=== PATIENT | male | born 1970 | race Caucasian/White ===

== ENCOUNTER 2019-10-04 11:56 | Outpatient (CLI) | payer MEDICARE, SELFPAY ==
--- NOTE | ~2019-10-04 | XR_ITS ---
EXAMINATION: XR_[id number]_CR EXAM DATE: 10/04/2019 12:24 INDICATION: Fall in shower. Neck and right shoulder pain. TECHNIQUE: Cervical spine frontal, lateral, lateral swimmers, and open-mouth odontoid projections. There is no prior study for comparison. FINDINGS: There is no evidence of acute cervical fracture. The odontoid process is intact. Pre-dens space is normal. Prevertebral soft tissue is normal. There are no soft tissue abnormalities identi fied. The vertebral bodies are aligned. Vertebral body and disc heights are well-maintained. IMPRESSION: 1. Unremarkable cervical spine. Reviewed, dictated and finalized at location B.
--- NOTE | ~2019-10-04 | XR_ITS ---
EXAMINATION: XR shoulder RT min 2V EXAM DATE: 10/04/2019 12:24 INDICATION: Initial encounter following injury, with pain of the right shoulder. Fall. TECHNIQUE: The following right shoulder projections obtained: frontal projection with internal rotati on, frontal projection with external rotation, Grashey, and scapular Y view (4+ views). Comparison is made to prior examination from 08/08/2013. FINDINGS: There is large calcification along the rotator cuff consistent with calcific tendinosis. There is mild acromioclavicular joint primary osteoarthritis. There are no acute fractures or disloca tions identified. There is no subcutaneous gas. The soft tissue is unremarkable. There are no rad iopaque foreign bodies. IMPRESSION: 1. Right shoulder exam without acute osseous findings. 2. Calcific tendinosis. 3. Mild chronic clavicular osteoarthritis. Reviewed, dictated and finalized at location B.
== END 2019-10-04 11:57 | disposition home or self-care (01) ==
PROVIDERS: PCP Family Medicine; Visit Provider Physician Assistant
DX: M79.603 Pain in arm, unspecified (principal); M75.81 Other shoulder lesions, right shoulder; M19.011 Primary osteoarthritis, right shoulder
CPT/HCPCS: 72040; 73030

== ENCOUNTER 2023-04-20 09:12 | Outpatient (CLI) | payer MEDICARE, SELFPAY ==
--- NOTE | ~2023-04-20 | US_ITS ---
EXAMINATION: US abdomen complete DATE: 04/20/2023 10:35 INDICATION: Unspecified abdominal pain TECHNIQUE: Multiple grayscale and Doppler ultrasound images of the abdomen were obtained. COMPARISON: None available FINDINGS: Bowel gas obscures visualization of the pancreas. The visualized portions of the pancreas a re unremarkable. The liver is normal with normal echogenicity and echotexture. No surface nodularity. Normal hepatopetal flow in the main portal vein. There is a small amount of debris in the gallbladde r. No gallbladder wall thickening or pericholecystic fluid identified. The normal common bile duct me asures 6 mm. There was no sonographic Shea sign. The visualized portions of the aorta and inferior vena cava are normal. The spleen is normal in appearance and measures 12.3 cm. The right kidney measures 11.9 x 5.6 x 5.3 c m. The left kidney measures 12.2 x 6.2 x 5.1 cm. The kidneys demonstrate normal parenchymal echogenic ity. There is no hydronephrosis. IMPRESSION: 1. No sonographic correlate for the patient's symptoms. 2. Small amount of gallbladder debris, otherwise unremarkable gallbladder. Reviewed, dictated and finalized at location L. [employer]
== END 2023-04-20 09:13 | disposition home or self-care (01) ==
PROVIDERS: PCP Family Medicine; Visit Provider Nurse Practitioner Family
DX: R10.9 Unspecified abdominal pain (principal)
CPT/HCPCS: 76700

== ENCOUNTER 2024-04-21 14:31 | Outpatient (CLI) | payer MEDICARE, SELFPAY ==
[2024-04-21 17:58] LABS: Hemoglobin A1C 6.5 % (<5.7)
[2024-04-21 18:00] LABS: Alanine Aminotransferase 31 U/L (6-50); Albumin Level 4.8 g/dL (3.5-5.1); Alkaline Phosphatase 77 U/L (38-126); Anion Gap 12 mmol/L (4-12); Aspartate Amino Transferase 51 U/L (17-59); Bilirubin,Total 0.5 mg/dL (0.2-1.3); Blood Urea Nitrogen 18 mg/dL (9-20); Calcium 9.6 mg/dL (8.4-10.2); Carbon Dioxide 30 mmol/L (22-30); Chloride 100 mmol/L (98-107); Cholesterol 137 mg/dL (0-200); Estimated Glomerular Filt Rate > 60; Glucose 120 mg/dL (65-110); HDL Direct 34 mg/dL; Potassium 4.1 mmol/L (3.4-5.0); Sodium 142 mmol/L (137-145); Triglycerides 111 mg/dL (<150); Uric Acid 4.1 mg/dL (3.5-8.5)
[2024-04-21 18:11] LABS: LDL Cholesterol Direct 82 mg/dL
[2024-04-21 18:29] LABS: Creatinine Urine 70.1 mg/dL
[2024-04-21 18:33] LABS: MALB Creatinine Ratio 41.7 mg/g (0-30); Microalbumin Urine Random 29.2 mg/L (0-16.7)
== END 2024-04-21 14:32 | disposition home or self-care (01) ==
PROVIDERS: PCP Family Medicine; Visit Provider Family Medicine
DX: M10.9 Gout, unspecified (principal); E11.9 Type 2 diabetes mellitus without complications
CPT/HCPCS: 36415; 80053; 80061; 82043; 83036; 84550

== ENCOUNTER 2024-12-12 08:42 | Outpatient (NON) | payer MEDICARE, SELFPAY ==
[2024-12-12 13:24] LABS: MALB Creatinine Ratio 147.8 mg/g (0-30)
== END 2024-12-12 08:43 | disposition home or self-care (01) ==
LOC: ANHGOSHLAB 08:43
PROVIDERS: PCP Family Medicine; Visit Provider Family Medicine
DX: E11.9 Type 2 diabetes mellitus without complications (principal); Z79.4 Long term (current) use of insulin
CPT/HCPCS: 82043